=== PATIENT | male | born 1995 | race African-American/Black ===

== ENCOUNTER 2023-07-09 11:46 | Emergency (ER) | payer MEDICAID ==
[~2023-07-09] VITALS: Ht 188 cm; Wt 91.0 kg
[2023-07-09 11:47] VITALS: O2SAT 100
[2023-07-09] MEDS: ONDANSETRON HCL 4MG/2ML INJ IV STA (12:10)
[2023-07-09] MEDS: KETOROLAC 30MG/ML VIAL IV STA (12:10)
[2023-07-09] MEDS: SODIUM CHLORIDE 0.9% 1,000 ML IV ONE (12:11)
[2023-07-09 12:24] LABS: BASOPHILS % 0.4 % (0.0-2.0); EOSINOPHILS % 0.1 % (0.0-5.0); HEMOGLOBIN. 15.6 g/dL (14.0-18.0); LYMPHOCYTES % 14.7 % (20.0-50.0); MEAN CORPUSCULAR HEMOGLOBIN 33.5 pg (28.0-32.0); MEAN CORPUSCULAR HGB CONC 34.7 g/dL (31.0-37.0); MEAN CORPUSCULAR VOLUME 96.5 fL (80.0-94.0); MEAN PLATELET VOLUME 8.3 fl (7.4-10.4); MONOCYTES % 4.3 % (2.0-8.0); NEUTROPHILS % 80.5 % (40.0-76.0); PLATELET 244 x1000/uL (130-400); RED BLOOD CELL COUNT 4.67 mill/uL (4.7-6.1); RED CELL DISTRIBUTION WIDTH 13.7 % (11.6-14.6); WHITE BLOOD COUNT 9.2 x1000/uL (4.5-11.0)
[2023-07-09 12:33] LABS: CHLORIDE 108 mEq/L (98-107); POTASSIUM 3.7 mEq/L (3.5-5.1); SODIUM 143 mEq/L (136-145)
[2023-07-09 12:34] LABS: CARBON DIOXIDE 25 mEq/L (21-32)
[2023-07-09] MEDS: BUPRENORPHINE 8MG SL TABLET SL ONE (12:34)
[2023-07-09 12:39] LABS: CREATININE 1.3 mg/dL (0.6-1.3); GLUCOSE 141 mg/dL (70-105); UREA NITROGEN BLOOD 6 mg/dL (9-23)
[2023-07-09 12:40] LABS: ALANINE AMINOTRANSFERASE 11 IU/L (10-49); ASPARTATE AMINOTRANSFERASE 18 IU/L (<34)
[2023-07-09 12:41] LABS: BILIRUBIN TOTAL 0.9 mg/dL (0.1-1.0); PROTEIN TOTAL 7.7 g/dL (6.0-8.3)
[2023-07-09 12:43] LABS: PROTHROMBIN TIME 11.5 sec (9.6-11.0)
[2023-07-09] MEDS: LORAZEPAM 2MG/ML INJ IV ONE (13:00)
[2023-07-09] MEDS ORDERED: NALO4SPR BOTHNSTRLS (13:42)
[2023-07-09] MEDS ORDERED: POLY17PO3 PO (13:42)
[2023-07-09] MEDS ORDERED: ONDA4TAB50 PO (13:42)
[2023-07-09] MEDS ORDERED: ONDA8TAB13 MT (13:42)
[2023-07-09] MEDS ORDERED: TOPUD PO (13:42)
[2023-07-09] MEDS ORDERED: BUPR1TAB33 SL ×2 (13:42→15:53)
[2023-07-09 14:00] VITALS: BP 98/62; PULSE 58; RESP 16; TEMP 98.1
== END 2023-07-09 14:00 | disposition home or self-care (01) ==
LOC: ER 11:46 → CANBEDREQ 14:11
DX: R10.9 Unspecified abdominal pain (principal); F11.23 Opioid dependence with withdrawal
CPT/HCPCS: 80053; 83690; 85025; 85610; 36415; 96361; 96374; 96375; 99284; J1885; J2405; Z7610; J7030